=== PATIENT | female | born 1950 | race African-American/Black ===

== ENCOUNTER 2021-04-12 15:29 | Inpatient (IN) | payer MEDICARE, OTHER ==
[~2021-04-12] VITALS: Ht 160 cm; Wt 46.7 kg
[~2021-04-12 15:29] MED LIST: ACET-2154 PO; AMLO10TA59 PO; DIVA125T2 PO; HYDR25TA86 PO; LORA1TAB PO; MAG355OR18 PO; MAGN400O6 PO; NO HOME; OLAN7.5T3 PO; TEMA15CA PO
[2021-04-12] MEDS ORDERED: IV NORMAL SALINE 1000 ML BAG IV ONE (16:00)
[2021-04-12 16:48] LABS: HEMATOCRIT 36.5 % (31.2-41.9); MEAN CORPUSCULAR VOLUME 69.9 fL (75.5-95.3); PLATELET COUNT (AUTO) 396 K/uL (179-408)
[2021-04-12 16:49] LABS: CREATININE 1.1 mg/dL (0.6-1.3); POTASSIUM 3.6 mmol/L (3.5-5.1)
[2021-04-12 17:08] LABS: BILIRUBIN,DIRECT 0.2 mg/dL (0.0-0.2); BILIRUBIN,TOTAL 0.4 mg/dL (0.2-1.0); TOTAL PROTEIN, SERUM 8.2 g/dL (6.4-8.2)
[2021-04-12] MEDS ORDERED: IV D5W 1000ML 1,000 ML IV ONE (17:15)
[2021-04-12 17:37] LABS: *BILIRUBIN,URIN NEGATIVE (NEGATIVE); *BLOOD, URINE NEGATIVE (NEGATIVE); *CLARITY,URINE CLEAR (CLEAR); *COLOR,URINE YELLOW (YELLOW); *KETONES,URINE TRACE (NEGATIVE); *UROBILINOGEN,URINE 0.2 E.U./dl (NORMAL); LEUKOCYTE ESTERASE ,URINE NEGATIVE (NEGATIVE); NITRITE, URINE NEGATIVE (NEGATIVE); UGLUCOSE NEGATIVE (NEGATIVE)
--- NOTE | 2021-04-12 17:56 | NUR ---
[facility] ETA 60 MINUTES.
--- NOTE | 2021-04-12 18:58 | NUR ---
[facility] at bedside to transfer the pt to [facility].pt transfered in stable condition.
--- NOTE | 2021-04-12 19:28 | NUR ---
assumed care of pt at this time. pt to be discharged. transport at bedside, however BP is elevated 173/[address] Donis. order received for hydralazine 20mg IV, will admiminister, and reassess.
[2021-04-12] MEDS ORDERED: hydrALAZINE HCL 20 MG/1 ML VIAL IV ONE ×2 (19:30)
[2021-04-12] MEDS ORDERED: hydrALAZINE HCL 20 MG/1 ML VIAL ONE (19:34)
--- NOTE | 2021-04-12 19:57 | NUR ---
report given to Martha LIANG @ [facility]. however, states she has to call me back in 5min bc no more beds available there?
--- NOTE | 2021-04-12 20:11 | NUR ---
Dr. Powell spoke w/Dr. Donis regarding this patient. Pt to be admitted med/surg for failure to thrive. admitting Aracelis Shine
[2021-04-12] MEDS ORDERED: LORAZEPAM 1 MG TABLET PO PRN (21:15)
[2021-04-12] MEDS ORDERED: Z GUARD REMEDY PASTE 57 GM TUBE TOP PRN (21:15)
[2021-04-12] MEDS ORDERED: hydrALAZINE HCL 25 MG TABLET PO SCH (21:15)
[2021-04-12] MEDS ORDERED: MAGNESIUM HYDROXIDE 30 ML LIQUID UDC PO PRN (21:15)
[2021-04-12] MEDS ORDERED: ONDANSETRON 4 MG/2 ML VIAL IV PRN (21:15)
[2021-04-12] MEDS ORDERED: IV D5/ 0.9% NACL 1,000 ML IV PRN (21:15)
[2021-04-12] MEDS: OLANZAPINE 5 MG TABLET PO SCH (23:50)
[2021-04-13 02:00] VITALS: BP 137/87
--- NOTE | 2021-04-13 02:15 | NUR ---
Admitted a 70 years old female with Dx of Failure to Thrive and Hypernatremia. Patient alert, but non-verbal. Appears confused and disoriented. In no apparent distress. No signs or symptoms of pain or SOB. PICC line on left upper arm with double lumen in place and intact. Incontinent of bowel and bladder function. Incontinent care provided during admission. Routine admission care done. Plan of care initiated. Safety measure initiated and call light within reached. Continue to monitor.
[2021-04-13] MEDS: hydrALAZINE HCL 25 MG TABLET PO PRN (04:22)
[2021-04-13 04:44] VITALS: BP 168/100
[2021-04-13 07:16] LABS: HEMATOCRIT 35.9 % (31.2-41.9); MEAN CORPUSCULAR HEMOGLOBIN 21.9 uug (24.7-32.8); MEAN CORPUSCULAR VOLUME 69.9 fL (75.5-95.3); PLATELET COUNT (AUTO) 381 K/uL (179-408)
[2021-04-13 07:41] LABS: CREATININE 1.1 mg/dL (0.6-1.3); MAGNESIUM 2.3 mg/dL (1.8-2.4); PHOSPHOROUS 2.4 mg/dL (2.5-4.9); POTASSIUM 3.5 mmol/L (3.5-5.1)
[2021-04-13] MEDS: DIVALPROEX 125 MG TABLET.DR PO SCH ×3 (08:50→16:47)
[2021-04-13] MEDS: AMLODIPINE 10 MG TABLET PO SCH (08:50)
[2021-04-13] MEDS: ENOXAPARIN SODIUM 40 MG/0.4 ML DISP.SYRIN SQ SCH (08:51)
[2021-04-13 10:00] VITALS: BP 138/72
[2021-04-13 11:00] VITALS: BP 146/84
--- NOTE | 2021-04-13 12:40 | NUR ---
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 DR CLIFFORD CALLED FOR SURGICAL CONSULT. RECOMMENDATIONS MADE FOR SKIN PROTECTION AND DISCUSSED WITH NURSING STAFF. MD IN AGREEMENT WITH PLAN OF CARE.
[2021-04-13] MEDS: IV D5W 1000ML 1,000 ML IV PRN ×2 (12:57→23:17)
[2021-04-13] MEDS: ACETAMINOPHEN 325 MG TABLET PO PRN (13:32)
--- NOTE | 2021-04-13 13:35 | NUR ---
Patient alert, flat affect, non-verbal. Appears confused and disoriented. In no apparent distress PT on Pureed thick liquid diet ,feeder . noted with teeth greening signs of symptoms of pain medicated with Tylenol 650 mg as order,no SOB remain at room air, 02 sat 100 %. Mid line on left upper arm with double lumen in place and intact running D5W at 100 ml /h. Incontinent of bowel and bladder function. Incontinent care provided . Seen by wound [place] nurse with new order for Therahoney care initiated . Safety measure in place and call light within reached. Continue to monitor.
[2021-04-13] MEDS: THERAHONEY GEL 1.5 OZ TUBE TOP SCH (14:18)
[2021-04-13 16:00] VITALS: BP 122/91
[2021-04-13] MEDS ORDERED: NEUTRA PHOS PACKET PO ONE (16:00)
--- NOTE | 2021-04-13 19:30 | NUR ---
Received patient lying in bed. Awake but non verbal. Flat affect. In no apparent distress. No signs or symptoms of pain or SOB. PICC line on left upper arm intact and patent. IVF infusing. Needs assessed and anticipated to. Safety measure initiated and call light within reached.
[2021-04-13 20:00] VITALS: BP 153/93
[2021-04-13] MEDS: OLANZAPINE 5 MG TABLET PO SCH (20:26)
--- NOTE | 2021-04-13 21:02 | NUR ---
TC to patient sebastián Suazo to get IC for debridement of the sacral wound. No answer. Left message on voicemail to call [facility] back. Awaiting for return call.
[2021-04-14 04:00] VITALS: BP 167/98
[2021-04-14] MEDS: hydrALAZINE HCL 25 MG TABLET PO PRN (04:28)
--- NOTE | 2021-04-14 06:42 | NUR ---
Patient slept through out the night. In no apparent distress. No signs or symptoms of pain or SOB. IVF infusing. Needs anticipated to and met. Safety measure maintained.
[2021-04-14 06:46] VITALS: BP 150/53
[2021-04-14] MEDS: DIVALPROEX 125 MG TABLET.DR PO SCH ×2 (09:41→11:58)
[2021-04-14] MEDS: AMLODIPINE 10 MG TABLET PO SCH ×2 (09:41→11:59)
[2021-04-14] MEDS: ENOXAPARIN SODIUM 40 MG/0.4 ML DISP.SYRIN SQ SCH (09:45)
[2021-04-14] MEDS: THERAHONEY GEL 1.5 OZ TUBE TOP SCH (09:46)
[2021-04-14 11:00] VITALS: BP 166/104
[2021-04-14] MEDS: IV D5W 1000ML 1,000 ML IV PRN (11:24)
[2021-04-14] MEDS: hydrALAZINE HCL 25 MG TABLET PO SCH ×2 (11:59→21:47)
[2021-04-14] MEDS: ACETAMINOPHEN 325 MG TABLET PO PRN (12:10)
[2021-04-14] MEDS: DIVALPROEX SPRINKLE 125 MG CAP.SPRINK PO SCH ×2 (14:51→21:47)
[2021-04-14 17:12] VITALS: BP 144/75
[2021-04-14 18:46] LABS: HEMATOCRIT 35.1 % (31.2-41.9); MEAN CORPUSCULAR HEMOGLOBIN 21.9 uug (24.7-32.8); MEAN CORPUSCULAR VOLUME 69.2 fL (75.5-95.3); PLATELET COUNT (AUTO) 325 K/uL (179-408)
[2021-04-14 18:58] LABS: CREATININE 0.8 mg/dL (0.6-1.3); MAGNESIUM 1.8 mg/dL (1.8-2.4); PHOSPHOROUS 2.4 mg/dL (2.5-4.9); POTASSIUM 3.7 mmol/L (3.5-5.1)
--- NOTE | 2021-04-14 19:55 | NUR ---
RECEIVED PATIENT LYING IN BED. AWAKE AND ALERT, BUT NON-RESPONSIVE. NOTED TO FREQUENTLY GRIND TEETH TOGETHER. ON ROOM AIR, SATURATING AT 99%/. PATIENT SHOWS NO SIGNS OF DISTRESS. CALLED PT'S SON, KIMBERLY TO OBTAIN CONSENT FOR SERIAL DEBRIDEMENT OF SACRUM, HOWEVER, PHONE NUMBER ON FILE CANNOT BE REACHED. SAFETY MEASURES INITIATED. WILL CONTINUE TO MONITOR.
[2021-04-14 21:02] VITALS: BP 171/96
[2021-04-14] MEDS: OLANZAPINE 5 MG TABLET PO SCH (21:46)
[2021-04-15] MEDS: IV D5W 1000ML 1,000 ML IV PRN (01:28)
[2021-04-15 05:02] VITALS: BP 127/78
[2021-04-15] MEDS: DIVALPROEX SPRINKLE 125 MG CAP.SPRINK PO SCH ×4 (06:12→22:13)
--- NOTE | 2021-04-15 06:39 | NUR ---
PATIENT SLEPT THROUGH THE NIGHT. NO VISIBLE SIGNS OF DISTRESS AT THIS TIME. IV ACCESS PATENT AND INTACT. COMPLIANT WITH MEDICATION REGIMEN, CRUSHED PILLS MIXED WITH WATER. ORAL CARE DONE. SACRAL WOUND TREATMENT DONE. ALL NEEDS ATTENDED TO AND MET. WILL ENDORSE TO DAY SHIFT.
--- NOTE | 2021-04-15 08:03 | NUR ---
ORAL CARE RENDERED, REPOSITIONED FOR COMFORT, NEEDS ATTENDED TO, ENDORSED TO AM NURSE IN APPARENTLY FAIR CONDITION, REMAINS NON VERBAL.
[2021-04-15] MEDS: ENOXAPARIN SODIUM 40 MG/0.4 ML DISP.SYRIN SQ SCH (08:44)
[2021-04-15] MEDS: AMLODIPINE 10 MG TABLET PO SCH (08:44)
[2021-04-15] MEDS: hydrALAZINE HCL 25 MG TABLET PO SCH ×2 (08:44→22:07)
[2021-04-15] MEDS: PROTEIN SUPPLEMENT (PROSTAT) 30 ML LIQUID PO SCH (08:44)
[2021-04-15] MEDS: THERAHONEY GEL 1.5 OZ TUBE TOP SCH (08:45)
[2021-04-15 09:37] LABS: CREATININE 0.9 mg/dL (0.6-1.3); HEMATOCRIT 35.7 % (31.2-41.9); MAGNESIUM 2.1 mg/dL (1.8-2.4); MEAN CORPUSCULAR VOLUME 68.6 fL (75.5-95.3); PHOSPHOROUS 3.1 mg/dL (2.5-4.9); PLATELET COUNT (AUTO) 322 K/uL (179-408)
[2021-04-15 12:08] VITALS: BP 130/79
[2021-04-15 16:00] VITALS: BP 132/82
[2021-04-15 20:00] VITALS: BP 158/81
--- NOTE | 2021-04-15 20:00 | NUR ---
AWAKE , IN BED, RESTING QUIETLY, NO ACUTE DISTRESS NOTED. NON VERBAL.
[2021-04-15] MEDS: OLANZAPINE 5 MG TABLET PO SCH (22:09)
--- NOTE | 2021-04-16 | NUR ---
SLEPT INTERMITTENTLY, NOTHING UNUSUAL NOTED.
[2021-04-16] MEDS: IV D5/ 0.9% NACL 1,000 ML IV PRN (01:30)
--- NOTE | 2021-04-16 02:00 | NUR ---
REPOSITIONED FOR COMFORT. KEPT DRY AND CLEAN , SIPS OF WATER TOLERATED WELL,W/O ANY PROBLEMS.VITAL S W/I NORMAL LIMITS.
[2021-04-16 04:00] VITALS: BP 136/77
[2021-04-16 08:17] LABS: HEMATOCRIT 32.6 % (31.2-41.9); MEAN CORPUSCULAR HEMOGLOBIN 22.2 uug (24.7-32.8); MEAN CORPUSCULAR VOLUME 68.5 fL (75.5-95.3); PLATELET COUNT (AUTO) 282 K/uL (179-408)
[2021-04-16 08:38] LABS: CREATININE 0.8 mg/dL (0.6-1.3); MAGNESIUM 2.2 mg/dL (1.8-2.4); PHOSPHOROUS 2.6 mg/dL (2.5-4.9); POTASSIUM 3.8 mmol/L (3.5-5.1)
[2021-04-16 11:21] VITALS: BP 145/73
[2021-04-16] MEDS: hydrALAZINE HCL 25 MG TABLET PO SCH ×2 (11:48→20:31)
[2021-04-16] MEDS: AMLODIPINE 10 MG TABLET PO SCH (11:49)
[2021-04-16] MEDS: PROTEIN SUPPLEMENT (PROSTAT) 30 ML LIQUID PO SCH (11:49)
[2021-04-16] MEDS: ENOXAPARIN SODIUM 40 MG/0.4 ML DISP.SYRIN SQ SCH (11:50)
[2021-04-16] MEDS: THERAHONEY GEL 1.5 OZ TUBE TOP SCH (11:50)
[2021-04-16] MEDS: DIVALPROEX SPRINKLE 125 MG CAP.SPRINK PO SCH ×2 (14:37→22:44)
[2021-04-16 15:18] VITALS: BP 136/65
[2021-04-16] MEDS: OLANZAPINE 5 MG TABLET PO SCH (20:31)
[2021-04-16 21:42] VITALS: BP 135/69
[2021-04-17 04:30] VITALS: BP 146/76
[2021-04-17] MEDS: DIVALPROEX SPRINKLE 125 MG CAP.SPRINK PO SCH ×3 (05:50→22:39)
[2021-04-17 07:09] LABS: HEMATOCRIT 28.6 % (31.2-41.9); MEAN CORPUSCULAR HEMOGLOBIN 22.4 uug (24.7-32.8); MEAN CORPUSCULAR VOLUME 69.2 fL (75.5-95.3); PLATELET COUNT (AUTO) 247 K/uL (179-408)
[2021-04-17 07:38] LABS: CREATININE 0.7 mg/dL (0.6-1.3); POTASSIUM 3.4 mmol/L (3.5-5.1)
[2021-04-17 07:39] LABS: PHOSPHOROUS 2.1 mg/dL (2.5-4.9)
[2021-04-17] MEDS: AMLODIPINE 10 MG TABLET PO SCH ×3 (08:47→10:43)
[2021-04-17] MEDS: ENOXAPARIN SODIUM 40 MG/0.4 ML DISP.SYRIN SQ SCH (08:48)
[2021-04-17] MEDS: PROTEIN SUPPLEMENT (PROSTAT) 30 ML LIQUID PO SCH (08:53)
[2021-04-17] MEDS: THERAHONEY GEL 1.5 OZ TUBE TOP SCH (08:53)
[2021-04-17] MEDS: hydrALAZINE HCL 25 MG TABLET PO SCH ×3 (09:00→10:43)
--- NOTE | 2021-04-17 09:51 | NUR ---
patient is unable to swallow Addendum: 04/17/21 at 1045 by MAUREEN CASTILLO RN, RN medications are administered with syringe orally, patient tolerated and swallowed with syringe, however noted with some cough, ST was at bedside to evaluating patient as well
[2021-04-17 11:00] VITALS: BP 151/85
[2021-04-17] MEDS ORDERED: POTASSIUM CHLORIDE 20 MEQ TAB.PRT.SR PO ONE (12:00)
[2021-04-17 14:10] VITALS: BP 151/85
[2021-04-17] MEDS: IV D5/ 0.9% NACL 1,000 ML IV PRN (15:00)
--- NOTE | 2021-04-17 15:32 | NUR ---
Patient was awake most of the time, grinding of her teeth all the time, turned and repositioned frequently to relieve the pressure, dressing done as ordered, no discharge noted, no odor noted from wound, however noted wound bed with yellow slough, continue with wound care, planned to have PEG placement by dr Watts possible tomorrow. consent given by sebastián Leos.
[2021-04-17 16:00] VITALS: BP 99/81
[2021-04-17] MEDS ORDERED: SODIUM PHOSPHATE MM 15 MMOL in IV NORMAL SALINE 250 ML IV ONE (18:00)
--- NOTE | 2021-04-17 19:30 | NUR ---
Received patient in bed. Alert, non-verbal, responds to name and light touch. Left upper arm PICC line intact and patent. On room air saturatin 98%. No signs of pain and distress. Bed in the lowest position, bed alarm on. Will continue to monitor.
[2021-04-17 20:00] VITALS: BP 143/68
[2021-04-17] MEDS: OLANZAPINE 5 MG TABLET PO SCH (22:40)
[2021-04-18 04:00] VITALS: BP 146/77
[2021-04-18] MEDS: DIVALPROEX SPRINKLE 125 MG CAP.SPRINK PO SCH ×3 (06:35→21:00)
[2021-04-18 06:40] LABS: HEMATOCRIT 29.6 % (31.2-41.9); MEAN CORPUSCULAR HEMOGLOBIN 21.9 uug (24.7-32.8); MEAN CORPUSCULAR VOLUME 68.6 fL (75.5-95.3); PLATELET COUNT (AUTO) 286 K/uL (179-408)
[2021-04-18 07:00] LABS: CREATININE 0.7 mg/dL (0.6-1.3); PHOSPHOROUS 2.5 mg/dL (2.5-4.9); POTASSIUM 3.4 mmol/L (3.5-5.1)
--- NOTE | 2021-04-18 07:00 | NUR ---
Patient slept through most of the night. Left upper arm IV intact and patent. On room air saturating 99%. NPO since midnight as ordered. No signs of pain and distress. Q2H turning. All needs anticipated and attended to. Bed in the lowest position, bed alarm on.
--- NOTE | 2021-04-18 08:00 | NUR ---
RESTING COMFORTABLY, AWAKE BUT CONFUSED UNABLE TO FOLLOW INSTRUCTION. CONFUSED AND DISORIENT X3, FOR EGD WITH PEG THIS PM
[2021-04-18] MEDS: THERAHONEY GEL 1.5 OZ TUBE TOP SCH (08:58)
[2021-04-18] MEDS: PROTEIN SUPPLEMENT (PROSTAT) 30 ML LIQUID PO SCH (08:58)
[2021-04-18] MEDS: ENOXAPARIN SODIUM 40 MG/0.4 ML DISP.SYRIN SQ SCH (09:00)
[2021-04-18] MEDS: hydrALAZINE HCL 25 MG TABLET PO SCH ×2 (09:00→20:51)
[2021-04-18] MEDS: IV D5/ 0.9% NACL 1,000 ML IV PRN (09:40)
[2021-04-18] MEDS: POTASSIUM CHLORIDE 50 ML IV SCH ×2 (10:38→11:40)
[2021-04-18 12:00] VITALS: BP 142/76
--- NOTE | 2021-04-18 12:20 | NUR ---
SEEN BY CHAI STEINER FOR FOLLOW-UP SEE NOTES
[2021-04-18] MEDS ORDERED: PROPOFOL 200 MG/20 ML BOTTLE IV ONE (13:35)
[2021-04-18] MEDS ORDERED: CEFAZOLIN 1 G VIAL IM ONE (13:35)
--- NOTE | 2021-04-18 14:02 | NUR ---
SPOKE AND VERIFIED WITH MARGARET LIANG WHO WITNESS WITH HIRAL SIMMS DNP WITH SON KIMBERLY WHO GAVE THE EGD-PEG TELEPHONE CONSENT ON 04/17/21. SURGERY STAFF FRED MADE AWARE
--- NOTE | 2021-04-18 16:32 | NUR ---
KIMBERLY CRONIN NOTIFIED AND VERIFIED CONSENT FOR EGD AND PEG AND HE IS CONSENTING FOR THE PROCEDURE
--- NOTE | 2021-04-18 16:39 | NUR ---
KEPT NPO FOR EGD/PEG THIS PM AT 1800
[2021-04-18 16:50] VITALS: BP 148/88
--- NOTE | 2021-04-18 17:38 | NUR ---
DOWN TO SURGERY VIA BED WITH OR STAFF
[2021-04-18 20:00] VITALS: BP 117/87
--- NOTE | 2021-04-18 20:00 | NUR ---
Patient back from surgery.S/p peg placement .Abdominal binder in place.Patient nonverbal ,open eyes .O2 at 2LPM via NC saturating well at 99 %.No facial grimaces of discomfort.Midline patent and intact on VY .Resumed IVF.Tolerated well. Will continue to monitor.
[2021-04-18] MEDS: OLANZAPINE 5 MG TABLET PO SCH (20:50)
[2021-04-19] MEDS: DIVALPROEX SPRINKLE 125 MG CAP.SPRINK PO SCH ×3 (05:47→22:23)
[2021-04-19] MEDS: IV D5/ 0.9% NACL 1,000 ML IV PRN ×2 (06:47→22:28)
[2021-04-19 06:48] VITALS: BP 158/80
[2021-04-19 06:52] LABS: HEMATOCRIT 31.3 % (31.2-41.9); PLATELET COUNT (AUTO) 277 K/uL (179-408)
[2021-04-19 06:56] LABS: CREATININE 0.7 mg/dL (0.6-1.3); POTASSIUM 4.4 mmol/L (3.5-5.1)
--- NOTE | 2021-04-19 08:00 | NUR ---
RESTING COMFORTABLY IN BED NO SS OF PAIN OR DISTRESS. GT IN PLACED WITH ABDOMINAL BINDER FOR SAFETY
[2021-04-19] MEDS: THERAHONEY GEL 1.5 OZ TUBE TOP SCH (09:31)
[2021-04-19] MEDS: ENOXAPARIN SODIUM 40 MG/0.4 ML DISP.SYRIN SQ SCH (09:31)
[2021-04-19] MEDS: PROTEIN SUPPLEMENT (PROSTAT) 30 ML LIQUID PO SCH (09:32)
[2021-04-19] MEDS: AMLODIPINE 10 MG TABLET PO SCH (09:43)
[2021-04-19] MEDS: hydrALAZINE HCL 25 MG TABLET PO SCH ×2 (09:43→22:22)
[2021-04-19] MEDS: GLUCERNA 1.2 1000ML LIQUID GT PRN (09:48)
--- NOTE | 2021-04-19 10:00 | NUR ---
STARTED GLUCERNA FEEDING PER DIETARY RECOMMENDATION SEE NOTES
--- NOTE | 2021-04-19 12:24 | NUR ---
SEEN BY Ana Luisa VALERA HOSPITALIST FOR FOLLOW-UP SEE NOTES
[2021-04-19 12:29] VITALS: BP 119/66
[2021-04-19 13:36] VITALS: BP 119/66
[2021-04-19 16:00] VITALS: BP 129/68
--- NOTE | 2021-04-19 19:30 | NUR ---
RECD PT IN BED, HOB UP. NO ACUTE DISTRESS NOTED, ALERT ,ORIENTED X2, NON VERBAL, ORAL CARE DONE,REPOSITIONED FOR COMFORT.RESTED FAIRLY WELL KEPT WARM AND COMFORTABLE.
[2021-04-19 21:59] VITALS: BP 150/83
[2021-04-19] MEDS: OLANZAPINE 5 MG TABLET PO SCH (22:23)
--- NOTE | 2021-04-20 | NUR ---
DUE MEDS GIVEN,IVF INFUSING WELL TO MIDLINE ON LEFT UPPER ARM, KEPT DRY AND CLEAN.
[2021-04-20 04:00] VITALS: BP 148/71
--- NOTE | 2021-04-20 06:00 | NUR ---
CHECKED FOR RESIDUAL NONE NOTED, GTUBE FEED. OFF AT THIS TIME, WILL RESUME AT 0800, [id number] BINDER ON, HOB UP. RESTING QUIETLY. SACRAL DECUB DRESSING INTACT.
[2021-04-20] MEDS: DIVALPROEX SPRINKLE 125 MG CAP.SPRINK PO SCH ×3 (08:40→21:57)
[2021-04-20] MEDS: hydrALAZINE HCL 25 MG TABLET PO SCH ×2 (08:42→21:56)
[2021-04-20] MEDS: AMLODIPINE 10 MG TABLET PO SCH (08:42)
[2021-04-20] MEDS: ENOXAPARIN SODIUM 40 MG/0.4 ML DISP.SYRIN SQ SCH (08:43)
[2021-04-20] MEDS: THERAHONEY GEL 1.5 OZ TUBE TOP SCH (08:53)
[2021-04-20] MEDS: PROTEIN SUPPLEMENT (PROSTAT) 30 ML LIQUID PO SCH (08:53)
[2021-04-20] MEDS: GLUCERNA 1.2 1000ML LIQUID GT PRN (08:54)
--- NOTE | 2021-04-20 09:00 | NUR ---
Nursing - Gastrostomy tube of Glucerna 1.3 at 55 ml per hour, tolerating well HOB elevated. GT site intact , no redness, abdominal binder on Pressure relief, repositioned at a regular intervals., heels floated.
[2021-04-20] MEDS ORDERED: Glucerna 1.2 GT (10:45)
[2021-04-20] MEDS ORDERED: HYDR-894 PO (10:45)
[2021-04-20] MEDS ORDERED: PROT30LI PO (10:45)
[2021-04-20 11:16] VITALS: BP 153/80
--- NOTE | 2021-04-20 12:47 | NUR ---
Discharge planning for tomorrow to SNF per Radha Brito DNP
--- NOTE | 2021-04-20 15:00 | NUR ---
Gastrostomy tube feedings of glucerna 1.2 at 55 ml per hours via feeding pump. tolerating fairly well, HOB elevated Repositioned at a regular intervals, offloading heels and buttocks area.Oral mucosa dry, oral care rendered. ,
[2021-04-20 15:08] VITALS: BP 141/75
[2021-04-20] MEDS: OLANZAPINE 5 MG TABLET PO SCH (21:56)
[2021-04-20] MEDS: IV D5/ 0.9% NACL 1,000 ML IV PRN (21:57)
--- NOTE | 2021-04-21 | NUR ---
TOLERATING GTUBE FE EDS , REPOSITIONED FOR COMFORT, NEEDS ATTENDED TO, ORAL CARE RENDERED,NO RESIDUAL NOTED.
[2021-04-21 04:00] VITALS: BP 148/72
[2021-04-21 08:15] VITALS: BP 155/81
[2021-04-21] MEDS: DIVALPROEX SPRINKLE 125 MG CAP.SPRINK PO SCH (08:15)
[2021-04-21] MEDS: ACETAMINOPHEN 325 MG TABLET PO PRN (08:15)
[2021-04-21] MEDS: AMLODIPINE 10 MG TABLET PO SCH (08:15)
[2021-04-21] MEDS: hydrALAZINE HCL 25 MG TABLET PO SCH (08:15)
[2021-04-21] MEDS: PROTEIN SUPPLEMENT (PROSTAT) 30 ML LIQUID PO SCH (09:05)
[2021-04-21] MEDS: THERAHONEY GEL 1.5 OZ TUBE TOP SCH (09:05)
[2021-04-21] MEDS: ENOXAPARIN SODIUM 40 MG/0.4 ML DISP.SYRIN SQ SCH (09:06)
--- NOTE | 2021-04-21 11:15 | NUR ---
DISCHARGED PATIENT TO SNF VIA AMBULANCE. NO DISTRESS IDENTIFIED. NO PAIN NOTED. DC REPORT GIVEN TO GARTH FAUST AT THE SNF. PEG INTACT. DRESSING CHANGED TO THE SACRAL AREA AND PHOTO IN CHART. BELONGING LIST SIGNED. NO CONCERNS NOTED PRIOR TO DC.
== END 2021-04-21 11:15 | DRG 622 ==
LOC: ER 15:29 → MEDSURG3 23:45
PROVIDERS: ADMIT Nurse Practitioner Acute Care; ATTEND Nurse Practitioner Acute Care
PROC: 0DH63UZ Insertion of Feeding Device into Stomach, Percutaneous Approach (ICD-10-PCS; principal; 2021-04-18)
PROC: 0JB70ZZ Excision of Back Subcutaneous Tissue and Fascia, Open Approach (ICD-10-PCS; 2021-04-18)
DX: R62.7 Adult failure to thrive (principal); L89.153 Pressure ulcer of sacral region, stage 3; G93.41 Metabolic encephalopathy; E87.0 Hyperosmolality and hypernatremia; E44.0 Moderate protein-calorie malnutrition; Z68.1 Body mass index [BMI] 19.9 or less, adult; E86.0 Dehydration; E78.5 Hyperlipidemia, unspecified; E86.1 Hypovolemia; G30.9 Alzheimer's disease, unspecified; F02.80 Dementia in other diseases classified elsewhere, unspecified severity, without behavioral disturbance, psychotic disturbance, mood disturbance, and anxiety; I10 Essential (primary) hypertension; E88.09 Other disorders of plasma-protein metabolism, not elsewhere classified; Z86.16 Personal history of COVID-19; M19.90 Unspecified osteoarthritis, unspecified site; Z20.822 Contact with and (suspected) exposure to COVID-19; F29 Unspecified psychosis not due to a substance or known physiological condition; R53.1 Weakness
CPT/HCPCS: 36415; 51702; 70030-TC; 71045; 83605; 83735; 84100; 85025; 85730; 87040; 87086; 93005; 97161; A4217; A4663; A6209; G0378; J0360; J0690; J1650; J3480; J3490; J7030; J7042; J7050; J7060; J7070